=== PATIENT | female | born 1945 | race Caucasian/White ===

== ENCOUNTER → 2018-05-14 12:36 | Outpatient (CLI) | payer MEDICARE, SELFPAY | PROVIDERS: Family Provider Internal Medicine; PCP Internal Medicine; Visit Provider Physician Assistant | DX: N39.0 Urinary tract infection, site not specified (principal); R31.9 Hematuria, unspecified | CPT/HCPCS: 87077; 87086; 87186 ==

== ENCOUNTER → 2019-09-05 12:20 | Outpatient (CLI) | payer MEDICARE, SELFPAY ==
--- NOTE | 2019-09-05 | DI.MRI.S_ITS ---
PROCEDURE: MR SHOULDER LT WO CON INDICATIONS: Bicipital tendinitis, left shoulder TECHNIQUE: Noncontrast oblique coronal T2 fast spin echo with fat saturation, oblique sagittal T1 spin echo and T2 fast spin echo with fat saturation, axial T1 spin echo and T2 fast spin echo with fat saturation through the shoulder. COMPARISON: None. FINDINGS: Image quality: Excellent. Rotator cuff: There is tendinosis and low to moderate grade articular and bursal surface partial thickness tear involving distal supraspinatus at its insertion on the humeral head extending to musculotendinous junction. Distal infraspinatus tendinosis is seen. Distal subscapularis tendon is intact. No full-thickness rotator cuff tendon rupture. Sagittal images demonstrate mild supraspinatus muscle atrophy. Bones and bursae: No bone marrow contusions or fractures. Moderate acromioclavicular joint osteoarthritic changes are seen with downward osteophyte formation depressing the musculotendinous junction of supraspinatus. Mild glenohumeral joint osteoarthritis is also noted. There is small to moderate amount of joint fluid and subacromial subdeltoid bursal fluid. No gross intra-articular loose body. Capsule and soft tissues: In the absence of intra-articular contrast, there is suggestion of superior anterior labral tear at 12 to 1 o'clock position. The glenohumeral ligaments appear intact. The long head of the biceps tendinosis and low-grade partial-thickness tear is noted. The rotator interval appears normal, without fibrosis. The coracohumeral ligament is normal in thickness. IMPRESSION: 1. Tendinosis and low to moderate grade articular and bursal surface partial thickness tear involving distal supraspinatus extending to musculotendinous junction. Mild supraspinatus muscle atrophy. Distal infraspinatus tendinosis. 2. Tendinosis and low-grade partial-thickness tear involving proximal intra-articular portion of long head of biceps. 3. Moderate acromioclavicular joint osteoarthritis. Mild glenohumeral joint osteoarthritis. Moderate amount of joint fluid, no gross intra-articular loose body. 4. Finding is suggestive of focal superior anterior labral tear at 12 to 1 o'clock position. Dictated by: Milton Walsh M.D. on 09/05/2019 at 13:45 Approved by: Milton Walsh M.D. on 09/05/2019 at 13:49
== END ==
PROVIDERS: Family Provider Internal Medicine; PCP Nurse Practitioner; Referring Provider Orthopaedic Surgery; Visit Provider Orthopaedic Surgery
DX: M75.22 Bicipital tendinitis, left shoulder (principal); S46.112A Strain of muscle, fascia and tendon of long head of biceps, left arm, initial encounter; M19.012 Primary osteoarthritis, left shoulder
CPT/HCPCS: 73221

== ENCOUNTER 2021-07-23 14:20 | Emergency (ER) | payer MEDICARE, SELFPAY ==
[2021-07-23] VITALS (8 sets, daily range): BP systolic 160–199; BP diastolic 72–92; PULSE 55–63; RESP 12–18; TEMP 36.1; O2SAT 96–99; BMI 31.1
--- NOTE | 2021-07-23 14:42 | DI.RAD.S_ITS ---
PROCEDURE: XR CHEST 1V INDICATIONS: chest pain TECHNIQUE: One view of the chest was acquired. COMPARISON: [facility], CT, CT ANGIO CHEST, 03/14/2020, 9:46. FINDINGS: Surgical changes and devices: None. Lungs and pleura: Lungs are clear. No pleural effusions or pneumothorax. Mediastinum: Mediastinal contours appear normal. Heart size is normal. Bones and chest wall: No suspicious bony lesions. Overlying soft tissues appear unremarkable. IMPRESSION: No acute cardiopulmonary process demonstrated radiographically. Dictated by: Fransico Sands M.D. on 07/23/2021 at 15:43 Approved by: Fransico Sands M.D. on 07/23/2021 at 15:43
--- NOTE | 2021-07-23 14:54 | DI.CT.S_ITS ---
PROCEDURE: CT HEAD/BRAIN WO CON INDICATIONS: dizziness TECHNIQUE: Noncontrast 4.5 mm thick angled axial sections acquired from the foramen magnum to the vertex, with coronal and sagittal reformats. For radiation dose reduction, the following was used: automated exposure control, adjustment of mA and/or kV according to patient size. COMPARISON: None. FINDINGS: Image quality: Excellent. CSF spaces: Basal cisterns are patent. No extra-axial fluid collections. The ventricles are symmetric in size and shape. Brain: No intracranial bleeds or masses. There is cerebral volume loss for age, with resultant ventricular and sulcal prominence. There are periventricular and deep white matter chronic small vessel ischemic changes. There is intracranial internal carotid artery atherosclerosis. Skull and face: Calvarium and visualized facial bones appear intact, without suspicious lesions. Sinuses: Visualized sinuses and mastoids are clear. IMPRESSION: No acute intracranial finding. Dictated by: Fransico Sands M.D. on 07/23/2021 at 15:49 Approved by: Fransico Sands M.D. on 07/23/2021 at 15:49
--- NOTE | 2021-07-23 14:54 | ED.DIZZY ---
HPI - Dizziness <Derek Clinton PA-C - Last Filed: 07/23/21 17:30> General Chief Complaint: Dizziness Stated Complaint: [facility] thinks stroke Time Seen by Provider: 07/23/21 14:46 Mode of arrival: Family Vehicle History of Present Illness HPI Narrative: Patient is a 76-year-old female who presents to the clinic who was referred to the ED for concerns of her symptoms of ongoing dizziness. She states that she started having some dizziness that started 2-3 days ago that has not improved and has remained constant. She says the only time that the dizziness is not there is when she is lying flat with her eyes closed. Any other times with motion or with standing or any kind of activity she says she feels unsteady on her feet and feels like she might fall. Her dizziness is described to be an unsteady gait but denies the room spinning or feeling of lightheadedness. She is not reporting any syncope. She was recently diagnosed with diabetes in the last 30 days and is not interested in taking medications at this time. She has been on a high-protein low-carbohydrate diet and reports 14 lb weight loss over the course of the last 30 days. She denies any chest pain she denies any shortness of breath she denies any nausea or vomiting or diarrhea. She states that she is drinking plenty of liquids although it is mostly seltzer water. Her diet serve mostly consisting of salads or proteins with limited amounts of carbohydrates. Related Data Home Medications Medication Instructions Recorded Confirmed CALCIUM CARBONATE (#CALCIUM) 600 mg PO Q DAY ##0 04/02/11 05/14/18 FOLIC ACID/VIT A/VIT B1/VIT 1 tab PO Q DAY ##0 04/02/11 05/14/18 (#MULTIVITAMIN) ISOSORBIDE MONONITRATE (Imdur) 30 mg PO AMAC ##0 04/02/11 05/14/18 OMEGA-3/DHA/EPA/FISH OIL 1 sgl PO Q DAY ##0 04/02/11 05/14/18 (Omegamint Fish Oil 750 MG Sfgl) niacin 500 mg tablet 500 mg PO QDAY ##0 04/02/11 05/14/18 COENZYME Q10/VITAMIN E (CO-Q-10 100 mg PO QDAY ##0 11/22/12 05/14/18 100mg) [ECOTRIN] 325 mg PO AM ##0 11/22/12 05/14/18 rosuvastatin 20 mg tablet (Crestor) 20 mg PO QDAY #0 tabs 11/22/12 05/14/18 Metoprolol Succinate (METOPROLOL 100 mg PO QDAY ##0 05/14/18 05/14/18 XL) apixaban 5 mg tablet 5 mg PO BID 05/14/18 05/14/18 ascorbic acid (vitamin C) 500 mg 500 mg PO DAILY 05/14/18 05/14/18 capsule,extended release cardioplegic no.20 (maint 4:1) 20 ml perfusion 05/14/18 05/14/18 mEq/810 mL (potassium) perfusion (Cardioplegia Maintenance 4:1) chlorthalidone 25 mg tablet 25 mg PO DAILY 05/14/18 05/14/18 diphenhydramine 25 1 tab PO BEDTIME PRN 05/14/18 05/14/18 mg-acetaminophen 500 mg tablet (Tylenol PM Extra Strength) melatonin 5 mg capsule mg PO 05/14/18 05/14/18 nitroglycerin 0.4 mg sublingual 0.4 mg sublingual Q5-15M PRN 05/14/18 05/14/18 tablet ranitidine HCl 150 mg tablet (Acid 150 mg PO DAILY 05/14/18 05/14/18 Control (ranitidine)) Allergies Allergy/AdvReac Type Severity Reaction Status Date / Time diltiazem Allergy Severe hallucinati Verified 07/23/21 14:31 ons atorvastatin Allergy Intermediate muscular Verified 07/23/21 14:31 pain From COMPAZINE PO TAB 10 MG Allergy Severe ANAPHYLAXIS Uncoded 07/23/21 14:31 Review of Systems <Derek Clinton PA-C - Last Filed: 07/23/21 17:30> Review of Systems ROS Unobtainable: All systems reviewed & are unremarkable except as noted in HPI and below Constitutional Constitutional: Denies chills, Denies fatigue, Denies fever(s), Denies frequent falls, Denies lethargy and Denies weakness Eyes Eyes: Denies change in vision, Denies eye discharge, Denies irritation and Denies loss of vision ENT Ears, Nose, Mouth, and Throat: Denies change in voice, Reports dizziness, Denies neck pain, Denies sore throat and Denies throat swelling Cardiovascular Cardiovascular: Denies chest pain, Denies irregular heart rhythm, Denies lightheadedness, Denies palpitations, Denies dyspnea, Denies dyspnea on exertion and Denies orthopnea Respiratory Respiratory: Denies cough, Denies dyspnea, Denies dyspnea on exertion and Denies wheezing Gastrointestinal Gastrointestinal: Denies abdominal pain, Denies change in bowel habits, Denies diarrhea, Denies nausea and Denies vomiting Genitourinary Genitourinary: Denies hematuria, Denies flank pain, Denies urinary incontinence and Denies urinary urgency Musculoskeletal Musculoskeletal: Denies back pain, Denies muscle weakness, Denies neck pain, Denies numbness and Denies tingling Integumentary/Breasts Skin/Breast: Denies pruritus, Denies erythema, Denies rash and Denies wounds Neurologic Neurologic: Denies behavioral changes, Denies confusion, Reports dizziness, Denies frequent falls, Denies loss of vision, Denies numbness, Denies tingling and Denies weakness Psychiatric Psychiatric: Denies anxiety, Denies behavioral changes, Denies confusion, Denies depression, Denies homicidal ideation and Denies suicidal ideation Endocrine Endocrine: Denies fatigue, Denies flushing and Denies palpitations Hematologic/Lymphatic Hematologic/Lymphatic: Denies easy bruising Allergic/Immunologic Allergic/Immunologic: Denies urticaria, Denies throat swelling and Denies wheezing Patient History <Derek Clinton PA-C - Last Filed: 07/23/21 17:30> Social History Smoking Status: Never smoker Smoking Status: Never smoker Substance Use Type: does not use Exam <Derek Clinton PA-C - Last Filed: 07/23/21 17:30> Initial Vital Signs Initial Vital Signs: Vital Signs Temperature 97 F L 07/23/21 14:27 Pulse Rate 63 07/23/21 14:27 Respiratory Rate 16 07/23/21 14:27 Blood Pressure 199/92 H 07/23/21 14:27 Pulse Oximetry 98 07/23/21 14:27 Oxygen Delivery Method 07/23/21 14:27 Const General: cooperative, healthy appearing and comfortable Nutritional Appearance: average body habitus HENMT Head: normal to inspection, normocephalic and atraumatic Ears: hearing grossly normal bilaterally and external ears normal Nose: external nose normal and nares normal Face and sinus: normal facial exam and sinuses nontender Mouth: oral mucosae normal and lip normal Teeth and gingiva: dentition normal and gingiva normal Throat: posterior oropharynx normal Resp Effort & Inspection: normal respiratory effort and able to speak in complete sentences Auscultation: clear to auscultation bilaterally Cardio Palpation: normal PMI Rate: regular rate Rhythm: regular rhythm Heart Sounds: S1 normal and S2 normal GI Inspection: normal to inspection Palpation: soft and no hepatosplenomegaly Percussion: normal to percussion Auscultation: normal bowel sounds Neuro General: patient alert, patient awake, patient oriented x3, moves all extremities, no focal motor deficits and CN's II-XI intact bilaterally <Isaias Vasquez DO - Last Filed: 07/25/21 10:10> Initial Vital Signs Initial Vital Signs: Vital Signs Temperature 97 F L 07/23/21 14:27 Pulse Rate 63 07/23/21 14:27 Respiratory Rate 16 07/23/21 14:27 Blood Pressure 199/92 H 07/23/21 14:27 Pulse Oximetry 98 07/23/21 14:27 Oxygen Delivery Method 07/23/21 14:27 Course <Derek Clinton PA-C - Last Filed: 07/23/21 17:30> Orders Ordered: ED Orders 07/23/21 14:42 XR chest 1V Stat EKG-12 Lead Stat 07/23/21 14:54 CT head/brain wo con Stat 07/23/21 14:56 Complete Blood Count AUTO DIFF Stat Comprehensive Metabolic Panel Stat Lipase Stat Magnesium Stat Troponin & CK Cardiac Panel Stat Reevaluation(s) Reevaluation #1: Patient reports that her dizziness has subsided and her vitals remained stable. I spoke with her about the diagnostic and laboratory study for this and suggested that she be discharged home at which she was agreeable. Vital Signs Vital signs: Vital Signs - 8 hr 07/23/21 14:27 07/23/21 14:44 07/23/21 15:00 Temperature 97 F L Pulse Rate 63 60 62 Respiratory Rate 16 18 18 Blood Pressure 199/92 H 198/92 H 182/85 H Pulse Oximetry 98 99 98 Oxygen Delivery Method Room Air 07/23/21 15:48 07/23/21 16:00 07/23/21 16:30 Temperature Pulse Rate 58 L 58 L 55 L Respiratory Rate 18 18 18 Blood Pressure 191/88 H 161/74 H 178/79 H Pulse Oximetry 96 98 97 Oxygen Delivery Method Room Air Room Air Room Air 07/23/21 17:00 Temperature Pulse Rate 63 Respiratory Rate 18 Blood Pressure 193/91 H Pulse Oximetry 96 Oxygen Delivery Method Room Air <Isaias Vasquez DO - Last Filed: 07/25/21 10:10> Orders Ordered: ED Orders 07/23/21 14:42 XR chest 1V Stat EKG-12 Lead Stat 07/23/21 14:54 CT head/brain wo con Stat 07/23/21 14:56 Complete Blood Count AUTO DIFF Stat Comprehensive Metabolic Panel Stat Lipase Stat Magnesium Stat Troponin & CK Cardiac Panel Stat Vital Signs Vital signs: Vital Signs - 8 hr 07/23/21 14:27 07/23/21 14:44 07/23/21 15:00 Temperature 97 F L Pulse Rate 63 60 62 Respiratory Rate 16 18 18 Blood Pressure 199/92 H 198/92 H 182/85 H Pulse Oximetry 98 99 98 Oxygen Delivery Method Room Air 07/23/21 15:48 07/23/21 16:00 07/23/21 16:30 Temperature Pulse Rate 58 L 58 L 55 L Respiratory Rate 18 18 18 Blood Pressure 191/88 H 161/74 H 178/79 H Pulse Oximetry 96 98 97 Oxygen Delivery Method Room Air Room Air Room Air 07/23/21 17:00 Temperature Pulse Rate 63 Respiratory Rate 18 Blood Pressure 193/91 H Pulse Oximetry 96 Oxygen Delivery Method Room Air MDM - Dizziness <Derek Clinton PA-C - Last Filed: 07/23/21 17:30> Differential Diagnosis Differential diagnosis: Likely other Lab Data Result diagrams: 07/23/21 14:56 07/23/21 14:56 Labs: Lab Results 07/23/21 07/23/21 Range/Units 14:56 14:56 WBC 7.1 (4.5-11.0) X10^3/uL RBC 5.41 H (4.0-5.2) X10^6/uL Hgb 16.5 H (12.0-16.0) g/dL Hct 47.8 H (36-46) % MCV 88.5 (80-100) fL MCH 30.5 (26-34) PG MCHC 34.4 (30-36) % RDW 14.7 (11.6-14.8) % Plt Count 189 (150-400) X10^3/uL Neut % (Auto) 69.7 (50-75) % Lymph % (Auto) 17.2 L (25-40) % [place] % (Auto) 10.5 (3-14) % Eos % (Auto) 1.7 L (2-4) % Baso % (Auto) 0.9 (0-2) % Neut # (Auto) 4900 (4396-9193) /uL Lymph # (Auto) 1200 (4602-7369) /uL [place] # (Auto) 700 (0-900) /uL Eos # (Auto) 100 (0-450) /uL Baso # (Auto) 100 (0-100) /uL RBC Morphology Normal morphology Sodium 140 (137-145) mmol/L Potassium 3.9 (3.4-5.1) mmol/L Chloride 106 (98-107) mmol/L Carbon Dioxide 26 (22-32) mmol/L BUN 12 (7-17) mg/dL Creatinine 0.63 (0.52-1.04) mg/dL Estimated GFR > 60 (>60) mL/min BUN/Creatinine Ratio 19.0 (6-22) Glucose 121 H (80-110) mg/dL Calcium 9.7 (8.4-10.2) mg/dL Magnesium 2.0 (1.6-2.3) mg/dL Total Bilirubin 1.5 H (0.2-1.3) mg/dL AST 38 H (14-36) IU/L ALT 35 H (<35) IU/L Alkaline Phosphatase 83 (38-126) U/L Total Creatine Kinase 47 (30-135) U/L CK-MB (CK-2) TNP CK-MB (CK-2) Rel Index TNP Troponin I < 0.012 (0.01-0.034) ng/mL Total Protein 7.8 (6.3-8.2) g/dL Albumin 4.6 (3.5-5.0) g/dL Globulin 3.2 (1.7-4.1) g/dL Albumin/Globulin Ratio 1.4 (1.0-2.8) Lipase 16 L (23-300) U/L Imaging Data CT scan - head: Radiologist's Impression: [address] [id number] [address] Scan Report Signed Patient: Emma Sanders MR#: [id number] : 1945 Acct:[id number] Age/Sex: 76 / F Date of Service: 07/23/21 Loc: ED Accession Number: [id number] ?? Procedure: CT head/brain wo con Ordering Provider: Derek Clinton P.A-C PROCEDURE:? CT HEAD/BRAIN WO CON ? INDICATIONS:? dizziness ? TECHNIQUE:? Noncontrast 4.5 mm thick angled axial sections acquired from the foramen magnum to the vertex, with coronal and sagittal reformats.? For radiation dose reduction, the following was used:? automated exposure control, adjustment of mA and/or kV according to patient size.? ? COMPARISON:? None. ? FINDINGS:? Image quality:? Excellent.? ? CSF spaces:? Basal cisterns are patent.? No extra-axial fluid collections.? The ventricles are symmetric in size and shape.? ? Brain:? No intracranial bleeds or masses.? There is cerebral volume loss for age, with resultant ventricular and sulcal prominence.? There are periventricular and deep white matter chronic small vessel ischemic changes.? There is intracranial internal carotid artery atherosclerosis.? ? Skull and face:? Calvarium and visualized facial bones appear intact, without suspicious lesions.? ? Sinuses:? Visualized sinuses and mastoids are clear.? ? IMPRESSION:? No acute intracranial finding. ? ? Dictated by: Fransico Sands M.D. on 07/23/2021 at 15:49 ? ? Approved by: Fransico Sands M.D. on 07/23/2021 at 15:49?? Chest x-ray: Radiologist's Impression: [address] [address] XRay Report Signed Patient: Emma Sanders MR#: [id number] : 1945 Acct:[id number] Age/Sex: 76 / F Date of Service: 07/23/21 Loc: ED Accession Number: [id number] ?? Procedure: XR chest 1V Ordering Provider: Isaias Vasquez D.O. PROCEDURE:? XR CHEST 1V ? INDICATIONS:? chest pain ? TECHNIQUE:? One view of the chest was acquired.? ? COMPARISON:? [facility], CT, CT ANGIO CHEST, 03/14/2020, 9:46. ? FINDINGS:? ? Surgical changes and devices:? None.? ? Lungs and pleura:? Lungs are clear.? No pleural effusions or pneumothorax.? ? Mediastinum:? Mediastinal contours appear normal.? Heart size is normal.? ? Bones and chest wall:? No suspicious bony lesions.? Overlying soft tissues appear unremarkable.? ? IMPRESSION:? No acute cardiopulmonary process demonstrated radiographically. ? ? Dictated by: Fransico Sands M.D. on 07/23/2021 at 15:43 ? ? Approved by: Fransico Sands M.D. on 07/23/2021 at 15:43?? MDM Narrative Medical decision making narrative: Patient was seen today for dizziness. Lab results and CT and x-ray do not show any findings to support this diagnosis. Based on her history of diabetes and her blood sugar today being 120 this could be on the basis of a blood sugar adjustment however it is unknown at this time. I spoke to the patient regarding the treatment options she was agreeable and will be discharged home. I told her that she needs to follow up with her PCP for further evaluation and follow-up. <Isaias Vasquez DO - Last Filed: 07/25/21 10:10> Lab Data Labs: Lab Results 07/23/21 07/23/21 Range/Units 14:56 14:56 WBC 7.1 (4.5-11.0) X10^3/uL RBC 5.41 H (4.0-5.2) X10^6/uL Hgb 16.5 H (12.0-16.0) g/dL Hct 47.8 H (36-46) % MCV 88.5 (80-100) fL MCH 30.5 (26-34) PG MCHC 34.4 (30-36) % RDW 14.7 (11.6-14.8) % Plt Count 189 (150-400) X10^3/uL Neut % (Auto) 69.7 (50-75) % Lymph % (Auto) 17.2 L (25-40) % [place] % (Auto) 10.5 (3-14) % Eos % (Auto) 1.7 L (2-4) % Baso % (Auto) 0.9 (0-2) % Neut # (Auto) 4900 (5285-0050) /uL Lymph # (Auto) 1200 (4539-8783) /uL [place] # (Auto) 700 (0-900) /uL Eos # (Auto) 100 (0-450) /uL Baso # (Auto) 100 (0-100) /uL RBC Morphology Normal morphology Sodium 140 (137-145) mmol/L Potassium 3.9 (3.4-5.1) mmol/L Chloride 106 (98-107) mmol/L Carbon Dioxide 26 (22-32) mmol/L BUN 12 (7-17) mg/dL Creatinine 0.63 (0.52-1.04) mg/dL Estimated GFR > 60 (>60) mL/min BUN/Creatinine Ratio 19.0 (6-22) Glucose 121 H (80-110) mg/dL Calcium 9.7 (8.4-10.2) mg/dL Magnesium 2.0 (1.6-2.3) mg/dL Total Bilirubin 1.5 H (0.2-1.3) mg/dL AST 38 H (14-36) IU/L ALT 35 H (<35) IU/L Alkaline Phosphatase 83 (38-126) U/L Total Creatine Kinase 47 (30-135) U/L CK-MB (CK-2) TNP CK-MB (CK-2) Rel Index TNP Troponin I < 0.012 (0.01-0.034) ng/mL Total Protein 7.8 (6.3-8.2) g/dL Albumin 4.6 (3.5-5.0) g/dL Globulin 3.2 (1.7-4.1) g/dL Albumin/Globulin Ratio 1.4 (1.0-2.8) Lipase 16 L (23-300) U/L Discharge Plan Departure Patient Disposition: Home Clinical Impression: Dizziness Instructions: DI for Dizziness-Nonvertigo Activity Restrictions/Additional Instructions: You were seen today for your concerns about dizziness. As I had told her earlier your lab work and CT imaging did not show me anything that was of significance that would explain your symptoms today. As result yield require further workup from your PCP and you can follow-up with them or if you have worsening symptoms she can always return to the emergency room. Thank you for the opportunity to care for you today. Prescriptions: No Action apixaban 5 mg tablet 5 mg PO BID ascorbic acid (vitamin C) 500 mg capsule, extended release 500 mg PO DAILY chlorthalidone 25 mg tablet 25 mg PO DAILY diphenhydramine-acetaminophen [Tylenol PM Extra Strength] 25-500 mg tablet 1 tab PO BEDTIME PRN melatonin 5 mg capsule PO nitroglycerin 0.4 mg tablet, sublingual 0.4 mg SL Q5-15M PRN Cardioplegia Maintenance 4:1 20 mEq/810 mL (potassium) solution Perfusion ranitidine HCl [Acid Control (ranitidine)] 150 mg tablet 150 mg PO DAILY CALCIUM CARBONATE (#CALCIUM) 600 mg PO Q DAY Qty: 0 ISOSORBIDE MONONITRATE (Imdur) 30 mg PO AMAC Qty: 0 niacin 500 MG tablet 500 mg PO QDAY Qty: 0 FOLIC ACID/VIT A/VIT B1/VIT (#MULTIVITAMIN) 1 tab PO Q DAY Qty: 0 OMEGA-3/DHA/EPA/FISH OIL (Omegamint Fish Oil 750 MG Sfgl) 1 sgl PO Q DAY Qty: 0 rosuvastatin [Crestor] 20 MG tablet 20 mg PO QDAY Qty: 0 COENZYME Q10/VITAMIN E (CO-Q-10 100mg) 100 mg PO QDAY Qty: 0 [ECOTRIN] 325 mg PO AM Qty: 0 Metoprolol Succinate (METOPROLOL XL) 100 mg PO QDAY Qty: 0 Referrals: Erika Raymond ARNP [Primary Care Provider] - Visit Report Forms: Patient Portal/API <Isaias Vasquez DO - Last Filed: 07/25/21 10:10> Cosign ED Attending Dennyature Attestation: I was immediately available in the department for consultation. This documentation has been reviewed and I agree with assessment and plan. Supervised by Isaias Vasquez DO
[2021-07-23 15:13] LABS: Basophils Absolute Auto 100 /uL (0-100); Basophils Percent Auto 0.9 % (0-2); Eosinophils Absolute Auto 100 /uL (0-450); Eosinophils Percent Auto 1.7 % (2-4); Hematocrit 47.8 % (36-46); Hemoglobin 16.5 g/dL (12.0-16.0); Lymphocytes Absolute Auto 1200 /uL (1100-4500); Lymphocytes Percent Auto 17.2 % (25-40); Mean Corpuscular HGB Conc 34.4 % (30-36); Mean Corpuscular Hemoglobin 30.5 PG (26-34); Mean Corpuscular Volume 88.5 fL (80-100); Monocytes Absolute Auto 700 /uL (0-900); Monocytes Percent Auto 10.5 % (3-14); Neutrophils Absolute Auto 4900 /uL (1500-7000); Neutrophils Percent Auto 69.7 % (50-75); Platelet Count 189 X10^3/uL (150-400); Red Blood Cell Count 5.41 X10^6/uL (4.0-5.2); Red Cell Distribution Width 14.7 % (11.6-14.8); White Blood Cell Count 7.1 X10^3/uL (4.5-11.0)
[2021-07-23 15:15] LABS: Add Manual Diff / Slide Review SLIDE REVIEW
[2021-07-23 15:28] LABS: Alanine Aminotransferase 35 IU/L (<35); Albumin 4.6 g/dL (3.5-5.0); Albumin Globulin Ratio 1.4 (1.0-2.8); Alkaline Phosphatase 83 U/L (38-126); Aspartate Aminotransferase 38 IU/L (14-36); Bilirubin Total 1.5 mg/dL (0.2-1.3); Blood Urea Nitrogen 12 mg/dL (7-17); Calcium 9.7 mg/dL (8.4-10.2); Carbon Dioxide 26 mmol/L (22-32); Chloride 106 mmol/L (98-107); Creatine Kinase 47 U/L (30-135); Estimated Glomerular Filt Rate > 60 mL/min (>60); Globulin 3.2 g/dL (1.7-4.1); Glucose 121 mg/dL (80-110); HEMOLYSIS < 15 (0-50); Lipase 16 U/L (23-300); Potassium 3.9 mmol/L (3.4-5.1); Sodium 140 mmol/L (137-145); Total Protein 7.8 g/dL (6.3-8.2)
[2021-07-23 15:40] LABS: Troponin I < 0.012 ng/mL (0.01-0.034)
[2021-07-23 16:03] LABS: RBC Morphology Normal Morphology
== END 2021-07-23 17:39 | disposition home or self-care (01) ==
PROVIDERS: Emergency Medicine; Emergency Provider Physician Assistant; Family Provider Internal Medicine; PCP Nurse Practitioner
DX: R42 Dizziness and giddiness (principal); R07.9 Chest pain, unspecified
CPT/HCPCS: 36415; 70450; 71045; 80053; 82550; 83690; 83735; 84484; 85025; 93005; 93010; 99284